=== PATIENT | female | born 1965 | race Caucasian/White ===

== ENCOUNTER 2018-07-20 08:26 | Inpatient (IN) | payer OTHER, MEDICAID, SELFPAY ==
[2018-07-20] VITALS (14 sets, daily range): BP systolic 96–140; BP diastolic 56–77; PULSE 95–118; RESP 12–28; TEMP 36.3–37.4; O2SAT 94–100; BMI 27.5
[2018-07-20] MEDS: BENZTROPINE 2 MG/2 ML AMPUL 1 MG IV ×2 (08:34→08:51)
--- NOTE | 2018-07-20 08:39 | ED.AMS ---
HPI - Altered Mental Status General Chief Complaint: Altered Mental Status Stated Complaint: Behavorial Time Seen by Provider: 07/20/18 08:28 Source: patient Mode of arrival: ambulatory Limitations: no limitations History of Present Illness HPI narrative: 52-year-old female nonsmoker with history of extensive mental health problems on a whole host of medications presents by EMS for evaluation of what appears to be a dystonic reaction, which she has had before. She does apparently take antipsychotics but has not been taking all of her medications as directed. She is awake and alert and attempting to communicate though her current condition makes it difficult. She denies any pain. She has had no trauma. She denies the use of alcohol or street drugs. She lives in a tent at a local long-term camping facility and 1 of her friends found her this way this morning. EMS administered Versed 1.5mg IM and another small 0.5mg IVP. This created little change in appearance. MD complaint: altered mental status and confusion Onset (ago): hour(s) Related Data Home Medications Medication Instructions Recorded Confirmed cyclobenzaprine 10 mg PO BID PRN 07/20/18 07/20/18 duloxetine 120 mg PO DAILY 07/20/18 07/20/18 etodolac 400 mg PO BID PRN 07/20/18 07/20/18 gabapentin 900 mg PO TID 07/20/18 07/20/18 hydroxyzine HCl 50 mg PO QID PRN 07/20/18 07/20/18 lorazepam 1 - 2 mg PO DAILY PRN 07/20/18 07/20/18 pantoprazole 40 mg PO DAILY 07/20/18 07/20/18 quetiapine 100 mg PO QAM 07/20/18 07/20/18 quetiapine 200 mg PO BEDTIME 07/20/18 07/20/18 ranitidine HCl 150 mg PO BID 07/20/18 07/20/18 Allergies Allergy/AdvReac Type Severity Reaction Status Date / Time codeine Allergy Severe THROAT Verified 07/20/18 08:47 CLOSES diphenhydramine Allergy Mild THROAT Verified 07/20/18 08:47 [From BENADRYL] CLOSES/ VISTARIL IS OK. divalproex sodium AdvReac Severe DYSFUNCTIONAL Verified 07/20/18 08:47 WITH ADLS benztropine AdvReac Intermediate MEMORY LOSS Verified 07/20/18 08:47 Review of Systems Review of Systems ROS Unobtainable: Unobtainable due to mental status/LOC Exam Narrative Exam Narrative: GENERAL: 52F in obvious distress, flailing her limbs, able to respond to questions, quite upset, not at neurologic baseline HEAD: Atraumatic. Normocephalic. No temporal or scalp tenderness. EYES: Pupils equal round and reactive. Extraocular motions intact. ENT: Nose without bleeding, purulent drainage or septal hematoma. Throat without erythema NECK: Trachea midline. No JVD or lymphadenopathy. Supple, nontender, no meningeal signs. CARDIOVASCULAR: Regular rate and rhythm without murmurs, gallops, or rubs. RESPIRATORY: Clear to auscultation. Breath sounds equal bilaterally. No wheezes, rales, or rhonchi. GASTROINTESTINAL: Abdomen soft, non-tender, nondistended. No hepato-splenomegaly, or palpable masses. No guarding. EXTREMITIES: No clubbing, cyanosis, or edema. No joint tenderness, effusion, or edema noted. BACK: Nontender without deformity or crepitance. No flank tenderness. NEURO: Alert SKIN: No rash or erythema. Initial Vital Signs Initial Vital Signs: Vital Signs Respiratory Rate 28 H 07/20/18 08:47 Pulse Oximetry 99 07/20/18 08:47 Course Course Narrative: Patient now resting comfortably after above stated Benzos and haldol Orders Ordered: ED Orders 07/20/18 11:02 CT head/brain wo con Stat 07/20/18 11:21 Ictotest Urine Stat Urinalysis and Microscopic Stat Urine Drug Screen, Rapid Stat 07/20/18 16:20 MRSA PCR Stat 07/20/18 16:33 Consult to Clinical Data Programmer Routine 07/20/18 18:23 Consult to Physician Routine Sodium Chloride (Normal Saline 0.9%) 1,000 mls @ 125 mls/hr IV CONT MANUEL Last Admin: 07/20/18 18:57 Dose: 125 mls/hr Lorazepam (Ativan) 1 mg IV Q2HR MANUEL Non-Formulary Medication (Patient's Own Medication) 0 each PO PRN PRN PRN Reason: HOME MEDICATION STORAGE Discontinued Medications Benztropine Mesylate (Cogentin) 1 mg IV NOW ONE Stop: 07/20/18 08:29 Last Admin: 07/20/18 08:34 Dose: 1 mg Benztropine Mesylate (Cogentin) 1 mg IV NOW ONE Stop: 07/20/18 08:48 Last Admin: 07/20/18 08:51 Dose: 1 mg Haloperidol (Haldol) 5 mg IV NOW ONE Stop: 07/20/18 11:28 Last Admin: 07/20/18 11:30 Dose: 5 mg Haloperidol (Haldol) 5 mg IV Q4HR PRN PRN Reason: Agitation Hydroxyzine HCl (Vistaril) 50 mg IM NOW ONE Stop: 07/20/18 18:35 Last Admin: 07/20/18 19:14 Dose: Not Given Sodium Chloride (Normal Saline 0.9%) 1,000 mls @ 1,000 mls/hr IV BOLUS ONE Stop: 07/20/18 09:27 Last Infusion: 07/20/18 09:48 Dose: 0 mls/hr Admin: 07/20/18 08:40 Dose: 1,000 mls/hr Sodium Chloride (Normal Saline 0.9%) 1,000 mls @ 1,000 mls/hr IV BOLUS ONE Stop: 07/20/18 13:50 Last Infusion: 07/20/18 14:20 Dose: 0 mls/hr Admin: 07/20/18 12:57 Dose: 1,000 mls/hr Lorazepam (Ativan) 2 mg IV NOW ONE Stop: 07/20/18 09:07 Last Admin: 07/20/18 09:09 Dose: 2 mg Lorazepam (Ativan) 1 mg IV NOW ONE Stop: 07/20/18 11:09 Last Admin: 07/20/18 11:08 Dose: 1 mg Lorazepam (Ativan) 1 mg IV NOW ONE Stop: 07/20/18 12:52 Last Admin: 07/20/18 12:57 Dose: 1 mg Methylprednisolone (Solu-Medrol 125 Mg Vial) 125 mg IV NOW ONE Stop: 07/20/18 08:50 Last Admin: 07/20/18 08:52 Dose: 125 mg Vital Signs - 8 hr 07/20/18 12:29 07/20/18 13:00 07/20/18 13:27 Temperature 98.1 F Pulse Rate 107 H 107 H 103 H Respiratory Rate 24 12 14 Blood Pressure Blood Pressure [Left Arm] 137/77 117/63 100/66 Pulse Oximetry 95 97 97 07/20/18 13:48 07/20/18 14:08 07/20/18 15:16 Temperature Pulse Rate 103 H 101 H 103 H Respiratory Rate 14 12 16 Blood Pressure Blood Pressure [Left Arm] 98/57 L 103/57 L 120/62 Pulse Oximetry 97 98 100 07/20/18 15:48 07/20/18 16:20 Temperature 98.2 F Pulse Rate 103 H 101 H Respiratory Rate 12 26 H Blood Pressure 112/56 L Blood Pressure [Left Arm] 96/63 Pulse Oximetry 98 94 MDM - Altered Mental Status Lab Data Result diagrams: 07/20/18 08:30 07/20/18 08:30 Lab Results 07/20/18 07/20/18 07/20/18 Range/Units 08:30 08:30 08:30 WBC 13.6 H (4.5-11.0) X10^3/uL RBC 4.50 (4.0-5.2) X10^6/uL Hgb 12.8 (12.0-16.0) g/dL Hct 37.6 (36-46) % MCV 83.6 (80-100) fL MCH 28.3 (26-34) PG MCHC 33.9 (30-36) % RDW 14.1 (11.6-14.8) % Plt Count 398 (150-400) X10^3/uL Neut % (Auto) 77.7 H (50-75) % Lymph % (Auto) 12.4 L (25-40) % [place] % (Auto) 9.0 (3-14) % Eos % (Auto) 0.1 L (2-4) % Baso % (Auto) 0.8 (0-2) % Neut # (Auto) 90089 H (4366-4532) /uL Lymph # (Auto) 1700 (8043-1016) /uL [place] # (Auto) 1200 H (0-900) /uL Eos # (Auto) 0 (0-450) /uL Baso # (Auto) 100 (0-100) /uL Sodium (137-145) mmol/L Potassium (3.4-5.1) mmol/L Chloride (98-107) mmol/L Carbon Dioxide (22-32) mmol/L BUN (7-17) mg/dL Creatinine (0.52-1.04) mg/dL Estimated GFR (>60) mL/min BUN/Creatinine Ratio (6-22) Glucose (70-100) mg/dL Lactate (0.7-2.1) mmol/L Calcium (8.4-10.2) mg/dL Total Bilirubin (0.2-1.3) mg/dL AST (14-36) IU/L ALT (9-52) IU/L Alkaline Phosphatase (38-126) U/L Total Creatine Kinase 605 H (30-135) U/L CK-MB (CK-2) 13.10 H (<2.37) ng/mL CK-MB (CK-2) Rel Index 2.2 (1.5-5.0) % Troponin I < 0.012 (0.01-0.034) ng/mL Total Protein (6.3-8.2) g/dL Albumin (3.5-5.0) g/dL Globulin (1.7-4.1) g/dL Albumin/Globulin Ratio (1.0-2.8) Procalcitonin (<0.5) ng/mL TSH 0.78 (0.47-4.68) uIU/mL Free T4 1.47 (0.78-2.19) ng/dL Urine Color Urine Appearance Urine pH (4.5-8.0) Ur Specific [place] (1.000-1.035) Urine Protein (Negative) Urine Glucose (UA) (Negative) g/dL Urine Ketones (NEGATIVE) Urine Occult Blood (Negative) Urine Nitrate (Negative) Urine Bilirubin (NEGATIVE) Urine Ictotest (Negative) Urine Urobilinogen (0.2) E.U./dL Ur Leukocyte Esterase (NEGATIVE) Urine RBC (0-5/HPF) Urine WBC (0-5/HPF) Ur Squamous Epith Cells (0-5/HPF) Amorphous Sediment Urine Bacteria (None) Hyaline Casts (None) Granular Casts (None) Urine Mucus (Negative) Ur Culture Indicated? Nasal Screen MRSA (PCR) (Negative) Salicylates < 1.0 (<20) mg/dL Urine Opiates Screen (Negative) Ur Oxycodone Screen (Negative) Urine Methadone Screen (Negative) Acetaminophen < 10 L (10-30) ug/mL Ur Barbiturates Screen (Negative) U Tricyclic Antidepress (Negative) Ur Phencyclidine Scrn (Negative) Ur Amphetamines Screen (Negative) U Methamphetamines Scrn (Negative) Ur MDMA Scrn (Ecstasy) (Negative) U Benzodiazepines Scrn (Negative) Urine Cocaine Screen (Negative) U Marijuana (THC) Screen (Negative) 07/20/18 07/20/18 07/20/18 Range/Units 08:30 08:30 09:00 WBC (4.5-11.0) X10^3/uL RBC (4.0-5.2) X10^6/uL Hgb (12.0-16.0) g/dL Hct (36-46) % MCV (80-100) fL MCH (26-34) PG MCHC (30-36) % RDW (11.6-14.8) % Plt Count (150-400) X10^3/uL Neut % (Auto) (50-75) % Lymph % (Auto) (25-40) % [place] % (Auto) (3-14) % Eos % (Auto) (2-4) % Baso % (Auto) (0-2) % Neut # (Auto) (8501-2325) /uL Lymph # (Auto) (8687-6193) /uL [place] # (Auto) (0-900) /uL Eos # (Auto) (0-450) /uL Baso # (Auto) (0-100) /uL Sodium 139 (137-145) mmol/L Potassium 4.1 (3.4-5.1) mmol/L Chloride 103 (98-107) mmol/L Carbon Dioxide 17 L (22-32) mmol/L BUN 24 H (7-17) mg/dL Creatinine 1.00 (0.52-1.04) mg/dL Estimated GFR 57.8 L (>60) mL/min BUN/Creatinine Ratio 24.0 H (6-22) Glucose 104 H (70-100) mg/dL Lactate 1.5 (0.7-2.1) mmol/L Calcium 10.5 H (8.4-10.2) mg/dL Total Bilirubin 1.3 (0.2-1.3) mg/dL AST 59 H (14-36) IU/L ALT 52 (9-52) IU/L Alkaline Phosphatase 130 H (38-126) U/L Total Creatine Kinase (30-135) U/L CK-MB (CK-2) (<2.37) ng/mL CK-MB (CK-2) Rel Index (1.5-5.0) % Troponin I (0.01-0.034) ng/mL Total Protein 7.9 (6.3-8.2) g/dL Albumin 4.6 (3.5-5.0) g/dL Globulin 3.3 (1.7-4.1) g/dL Albumin/Globulin Ratio 1.4 (1.0-2.8) Procalcitonin < 0.05 (<0.5) ng/mL TSH (0.47-4.68) uIU/mL Free T4 (0.78-2.19) ng/dL Urine Color Urine Appearance Urine pH (4.5-8.0) Ur Specific [place] (1.000-1.035) Urine Protein (Negative) Urine Glucose (UA) (Negative) g/dL Urine Ketones (NEGATIVE) Urine Occult Blood (Negative) Urine Nitrate (Negative) Urine Bilirubin (NEGATIVE) Urine Ictotest (Negative) Urine Urobilinogen (0.2) E.U./dL Ur Leukocyte Esterase (NEGATIVE) Urine RBC (0-5/HPF) Urine WBC (0-5/HPF) Ur Squamous Epith Cells (0-5/HPF) Amorphous Sediment Urine Bacteria (None) Hyaline Casts (None) Granular Casts (None) Urine Mucus (Negative) Ur Culture Indicated? Nasal Screen MRSA (PCR) (Negative) Salicylates (<20) mg/dL Urine Opiates Screen (Negative) Ur Oxycodone Screen (Negative) Urine Methadone Screen (Negative) Acetaminophen (10-30) ug/mL Ur Barbiturates Screen (Negative) U Tricyclic Antidepress (Negative) Ur Phencyclidine Scrn (Negative) Ur Amphetamines Screen (Negative) U Methamphetamines Scrn (Negative) Ur MDMA Scrn (Ecstasy) (Negative) U Benzodiazepines Scrn (Negative) Urine Cocaine Screen (Negative) U Marijuana (THC) Screen (Negative) 07/20/18 07/20/18 07/20/18 Range/Units 11:21 11:21 16:20 WBC (4.5-11.0) X10^3/uL RBC (4.0-5.2) X10^6/uL Hgb (12.0-16.0) g/dL Hct (36-46) % MCV (80-100) fL MCH (26-34) PG MCHC (30-36) % RDW (11.6-14.8) % Plt Count (150-400) X10^3/uL Neut % (Auto) (50-75) % Lymph % (Auto) (25-40) % [place] % (Auto) (3-14) % Eos % (Auto) (2-4) % Baso % (Auto) (0-2) % Neut # (Auto) (3752-4243) /uL Lymph # (Auto) (3930-9834) /uL [place] # (Auto) (0-900) /uL Eos # (Auto) (0-450) /uL Baso # (Auto) (0-100) /uL Sodium (137-145) mmol/L Potassium (3.4-5.1) mmol/L Chloride (98-107) mmol/L Carbon Dioxide (22-32) mmol/L BUN (7-17) mg/dL Creatinine (0.52-1.04) mg/dL Estimated GFR (>60) mL/min BUN/Creatinine Ratio (6-22) Glucose (70-100) mg/dL Lactate (0.7-2.1) mmol/L Calcium (8.4-10.2) mg/dL Total Bilirubin (0.2-1.3) mg/dL AST (14-36) IU/L ALT (9-52) IU/L Alkaline Phosphatase (38-126) U/L Total Creatine Kinase (30-135) U/L CK-MB (CK-2) (<2.37) ng/mL CK-MB (CK-2) Rel Index (1.5-5.0) % Troponin I (0.01-0.034) ng/mL Total Protein (6.3-8.2) g/dL Albumin (3.5-5.0) g/dL Globulin (1.7-4.1) g/dL Albumin/Globulin Ratio (1.0-2.8) Procalcitonin (<0.5) ng/mL TSH (0.47-4.68) uIU/mL Free T4 (0.78-2.19) ng/dL Urine Color Yellow Urine Appearance Clear Urine pH 5.0 (4.5-8.0) Ur Specific [place] >=1.030 H (1.000-1.035) Urine Protein Trace H (Negative) Urine Glucose (UA) Negative (Negative) g/dL Urine Ketones 2+ H (NEGATIVE) Urine Occult Blood Trace-lysed (Negative) Urine Nitrate Negative (Negative) Urine Bilirubin 1+ H (NEGATIVE) Urine Ictotest Negative (Negative) Urine Urobilinogen 0.2 (0.2) E.U./dL Ur Leukocyte Esterase Negative (NEGATIVE) Urine RBC 0-1/hpf (0-5/HPF) Urine WBC 0-1/hpf (0-5/HPF) Ur Squamous Epith Cells 1-5 /hpf (0-5/HPF) Amorphous Sediment 1+ Urine Bacteria Few (2-10) H (None) Hyaline Casts 0-1/lpf (None) Granular Casts 0-1/lpf (None) Urine Mucus 1+ H (Negative) Ur Culture Indicated? Cult not indicated Nasal Screen MRSA (PCR) Negative for mrsa (Negative) Salicylates (<20) mg/dL Urine Opiates Screen Negative (Negative) Ur Oxycodone Screen Negative (Negative) Urine Methadone Screen Negative (Negative) Acetaminophen (10-30) ug/mL Ur Barbiturates Screen Negative (Negative) U Tricyclic Antidepress Positive H (Negative) Ur Phencyclidine Scrn Negative (Negative) Ur Amphetamines Screen Positive H (Negative) U Methamphetamines Scrn Negative (Negative) Ur MDMA Scrn (Ecstasy) Negative (Negative) U Benzodiazepines Scrn Negative (Negative) Urine Cocaine Screen Negative (Negative) U Marijuana (THC) Screen Positive H (Negative) Imaging Data CT scan - head: Radiologist's impression: 47 Juan Robles, DO Find Patient Imaging Anyi Deleon 52 F 1965 ACTIVITY DATE EXAM STATUS AUTHOR 07/20/18 11:[address] [id number] [address] Scan Report Signed Patient: Anyi Deleon MMR#: [id number] : 1965Acct:[id number] Age/Sex: 52 / FDate of Service: 07/20/18 Loc: ED Accession Number: [id number] Procedure: CT head/brain wo con Ordering Provider: Juan Robles D.O. PROCEDURE: CT HEAD/BRAIN WO CON INDICATIONS: mental status change TECHNIQUE: Noncontrast 4.5 mm thick angled axial sections acquired from the foramen magnum to the vertex, with coronal and sagittal reformats. For radiation dose reduction, the following was used: automated exposure control, adjustment of mA and/or kV according to patient size. COMPARISON: [facility], CT, HEAD WITHOUT CONTRAST, 01/10/2015, 18:09. FINDINGS: Image quality: Diagnostic. CSF spaces: Basal cisterns are patent. No extra-axial fluid collections. Ventricles are normal in size and shape. Brain: No midline shift. No intracranial masses or hemorrhage. Gil-white matter interface is normal. Skull and face: Calvarium and visualized facial bones are intact, without suspicious lesions. Sinuses: Visualized sinuses and mastoids are clear. IMPRESSION: Unremarkable head CT. No acute intracranial hemorrhage. Dictated by: Vinnie Larry M.D. on 07/20/2018 at 12:35 Approved by: Vinnie Larry M.D. on 07/20/2018 at 12:36 MDM Narrative Medical decision making narrative: 52-year-old female presents in what appears to be excited delirium. She has extensive psychiatric history and is unable to participate in review of systems during her visit. She had attempts made to reverse a possible dystonic reaction which were unsuccessful and thorough evaluation for other possible etiologies. Poly substance or street drugs are considered highly likely. Trauma considered but thought less likely given exam. Serotonin syndrome and NMS are considered but thought less likely given history and physical. Patient will require hospitalization for ongoing observation and stabilization of her condition. Discharge Plan Departure Patient Disposition: Admitted as Observation Clinical Impression: Altered mental status, unspecified Discharge Date/Time: 07/20/18 16:17 Interventions: ED Discharge Assessment Last Done: 07/20/18 16:17 Admit Date/Time: 07/20/18 14:50 Admit Provider: Emelyn Arellano
[2018-07-20] MEDS: SODIUM CHLORIDE 0.9% 1,000 ML 1000 ML IV ×2 (08:40→12:57)
[2018-07-20 08:48] LABS: Add Manual Diff / Slide Review NO; Basophils Absolute Auto 100 /uL (0-100); Basophils Percent Auto 0.8 % (0-2); Eosinophils Absolute Auto 0 /uL (0-450); Eosinophils Percent Auto 0.1 % (2-4); Hematocrit 37.6 % (36-46); Hemoglobin 12.8 g/dL (12.0-16.0); Lymphocytes Absolute Auto 1700 /uL (1100-4500); Lymphocytes Percent Auto 12.4 % (25-40); Mean Corpuscular HGB Conc 33.9 % (30-36); Mean Corpuscular Hemoglobin 28.3 PG (26-34); Mean Corpuscular Volume 83.6 fL (80-100); Monocytes Absolute Auto 1200 /uL (0-900); Neutrophils Absolute Auto 10600 /uL (1500-7000); Neutrophils Percent Auto 77.7 % (50-75); Platelet Count 398 X10^3/uL (150-400); Red Cell Distribution Width 14.1 % (11.6-14.8); White Blood Cell Count 13.6 X10^3/uL (4.5-11.0)
[2018-07-20] MEDS: methylPREDNISolone 125 MG/2 ML VIAL IV (08:52)
--- NOTE | 2018-07-20 08:53 | PC.NURSE ---
pt continues to be unable to sit still on bed. pt's leg and arms moving about uncontrollably. pt moaning and calling out please please pt able to answer questions with one word answers. pt c/o iv hurting. pt yelling out.
--- NOTE | 2018-07-20 09:00 | ED_ITS ---
HPI - Altered Mental Status General Chief Complaint: Altered Mental Status Stated Complaint: Behavorial Time Seen by Provider: 07/20/18 08:28 Source: patient Mode of arrival: ambulatory Limitations: no limitations History of Present Illness HPI narrative: 52-year-old female nonsmoker with history of extensive mental health problems on a whole host of medications presents by EMS for evaluation of what appears to be a dystonic reaction, which she has had before. She does apparently take antipsychotics but has not been taking all of her medications as directed. She is awake and alert and attempting to communicate though her current condition makes it difficult. She denies any pain. She has had no trauma. She denies the use of alcohol or street drugs. She lives in a tent at a local long-term camping facility and 1 of her friends found her this way this morning. EMS administered Versed 1.5mg IM and another small 0.5mg IVP. This created little change in appearance. MD complaint: altered mental status and confusion Onset (ago): hour(s) Related Data Home Medications Medication Instructions Recorded Confirmed cyclobenzaprine 10 mg PO BID PRN 07/20/18 07/20/18 duloxetine 120 mg PO DAILY 07/20/18 07/20/18 etodolac 400 mg PO BID PRN 07/20/18 07/20/18 gabapentin 900 mg PO TID 07/20/18 07/20/18 hydroxyzine HCl 50 mg PO QID PRN 07/20/18 07/20/18 lorazepam 1 - 2 mg PO DAILY PRN 07/20/18 07/20/18 pantoprazole 40 mg PO DAILY 07/20/18 07/20/18 quetiapine 100 mg PO QAM 07/20/18 07/20/18 quetiapine 200 mg PO BEDTIME 07/20/18 07/20/18 ranitidine HCl 150 mg PO BID 07/20/18 07/20/18 Allergies Allergy/AdvReac Type Severity Reaction Status Date / Time codeine Allergy Severe THROAT Verified 07/20/18 08:47 CLOSES diphenhydramine Allergy Mild THROAT Verified 07/20/18 08:47 [From BENADRYL] CLOSES/ VISTARIL IS OK. divalproex sodium AdvReac Severe DYSFUNCTIONAL Verified 07/20/18 08:47 WITH ADLS benztropine AdvReac Intermediate MEMORY LOSS Verified 07/20/18 08:47 Review of Systems Review of Systems ROS Unobtainable: Unobtainable due to mental status/LOC Exam Narrative Exam Narrative: GENERAL: 52F in obvious distress, flailing her limbs, able to respond to questions, quite upset, not at neurologic baseline HEAD: Atraumatic. Normocephalic. No temporal or scalp tenderness. EYES: Pupils equal round and reactive. Extraocular motions intact. ENT: Nose without bleeding, purulent drainage or septal hematoma. Throat without erythema NECK: Trachea midline. No JVD or lymphadenopathy. Supple, nontender, no meningeal signs. CARDIOVASCULAR: Regular rate and rhythm without murmurs, gallops, or rubs. RESPIRATORY: Clear to auscultation. Breath sounds equal bilaterally. No wheezes, rales, or rhonchi. GASTROINTESTINAL: Abdomen soft, non-tender, nondistended. No hepato- splenomegaly, or palpable masses. No guarding. EXTREMITIES: No clubbing, cyanosis, or edema. No joint tenderness, effusion, or edema noted. BACK: Nontender without deformity or crepitance. No flank tenderness. NEURO: Alert SKIN: No rash or erythema. Initial Vital Signs Initial Vital Signs: Vital Signs Respiratory Rate 28 H 07/20/18 08:47 Pulse Oximetry 99 07/20/18 08:47 Course Course Narrative: Patient now resting comfortably after above stated Benzos and haldol Orders Ordered: ED Orders 07/20/18 11:02 CT head/brain wo con Stat 07/20/18 11:21 Ictotest Urine Stat Urinalysis and Microscopic Stat Urine Drug Screen, Rapid Stat 07/20/18 16:20 MRSA PCR Stat 07/20/18 16:33 Consult to [employer] Routine 07/20/18 18:23 Consult to Physician Routine Sodium Chloride (Normal Saline 0.9%) 1,000 mls @ 125 mls/hr IV CONT MANUEL Last Admin: 07/20/18 18:57 Dose: 125 mls/hr Lorazepam (Ativan) 1 mg IV Q2HR MANUEL Non-Formulary Medication (Patient's Own Medication) 0 each PO PRN PRN PRN Reason: HOME MEDICATION STORAGE Discontinued Medications Benztropine Mesylate (Cogentin) 1 mg IV NOW ONE Stop: 07/20/18 08:29 Last Admin: 07/20/18 08:34 Dose: 1 mg Benztropine Mesylate (Cogentin) 1 mg IV NOW ONE Stop: 07/20/18 08:48 Last Admin: 07/20/18 08:51 Dose: 1 mg Haloperidol (Haldol) 5 mg IV NOW ONE Stop: 07/20/18 11:28 Last Admin: 07/20/18 11:30 Dose: 5 mg Haloperidol (Haldol) 5 mg IV Q4HR PRN PRN Reason: Agitation Hydroxyzine HCl (Vistaril) 50 mg IM NOW ONE Stop: 07/20/18 18:35 Last Admin: 07/20/18 19:14 Dose: Not Given Sodium Chloride (Normal Saline 0.9%) 1,000 mls @ 1,000 mls/hr IV BOLUS ONE Stop: 07/20/18 09:27 Last Infusion: 07/20/18 09:48 Dose: 0 mls/hr Admin: 07/20/18 08:40 Dose: 1,000 mls/hr Sodium Chloride (Normal Saline 0.9%) 1,000 mls @ 1,000 mls/hr IV BOLUS ONE Stop: 07/20/18 13:50 Last Infusion: 07/20/18 14:20 Dose: 0 mls/hr Admin: 07/20/18 12:57 Dose: 1,000 mls/hr Lorazepam (Ativan) 2 mg IV NOW ONE Stop: 07/20/18 09:07 Last Admin: 07/20/18 09:09 Dose: 2 mg Lorazepam (Ativan) 1 mg IV NOW ONE Stop: 07/20/18 11:09 Last Admin: 07/20/18 11:08 Dose: 1 mg Lorazepam (Ativan) 1 mg IV NOW ONE Stop: 07/20/18 12:52 Last Admin: 07/20/18 12:57 Dose: 1 mg Methylprednisolone (Solu-Medrol 125 Mg Vial) 125 mg IV NOW ONE Stop: 07/20/18 08:50 Last Admin: 07/20/18 08:52 Dose: 125 mg Vital Signs - 8 hr 07/20/18 12:29 07/20/18 13:00 07/20/18 13:27 Temperature 98.1 F Pulse Rate 107 H 107 H 103 H Respiratory Rate 24 12 14 Blood Pressure Blood Pressure [Left Arm] 137/77 117/63 100/66 Pulse Oximetry 95 97 97 07/20/18 13:48 07/20/18 14:08 07/20/18 15:16 Temperature Pulse Rate 103 H 101 H 103 H Respiratory Rate 14 12 16 Blood Pressure Blood Pressure [Left Arm] 98/57 L 103/57 L 120/62 Pulse Oximetry 97 98 100 07/20/18 15:48 07/20/18 16:20 Temperature 98.2 F Pulse Rate 103 H 101 H Respiratory Rate 12 26 H Blood Pressure 112/56 L Blood Pressure [Left Arm] 96/63 Pulse Oximetry 98 94 MDM - Altered Mental Status Lab Data Result diagrams: 07/20/18 08:30 07/20/18 08:30 Lab Results 07/20/18 07/20/18 07/20/18 Range/Units 08:30 08:30 08:30 WBC 13.6 H (4.5-11.0) X10^3/uL RBC 4.50 (4.0-5.2) X10^6/uL Hgb 12.8 (12.0-16.0) g/dL Hct 37.6 (36-46) % MCV 83.6 (80-100) fL MCH 28.3 (26-34) PG MCHC 33.9 (30-36) % RDW 14.1 (11.6-14.8) % Plt Count 398 (150-400) X10^3/uL Neut % (Auto) 77.7 H (50-75) % Lymph % (Auto) 12.4 L (25-40) % Lamar % (Auto) 9.0 (3-14) % Eos % (Auto) 0.1 L (2-4) % Baso % (Auto) 0.8 (0-2) % Neut # (Auto) 44806 H (0871-7171) /uL Lymph # (Auto) 1700 (4244-3171) /uL Lamar # (Auto) 1200 H (0-900) /uL Eos # (Auto) 0 (0-450) /uL Baso # (Auto) 100 (0-100) /uL Sodium (137-145) mmol/L Potassium (3.4-5.1) mmol/L Chloride (98-107) mmol/L Carbon Dioxide (22-32) mmol/L BUN (7-17) mg/dL Creatinine (0.52-1.04) mg/dL Estimated GFR (>60) mL/min BUN/Creatinine Ratio (6-22) Glucose (70-100) mg/dL Lactate (0.7-2.1) mmol/L Calcium (8.4-10.2) mg/dL Total Bilirubin (0.2-1.3) mg/dL AST (14-36) IU/L ALT (9-52) IU/L Alkaline Phosphatase (38-126) U/L Total Creatine Kinase 605 H (30-135) U/L CK-MB (CK-2) 13.10 H (<2.37) ng/mL CK-MB (CK-2) Rel Index 2.2 (1.5-5.0) % Troponin I < 0.012 (0.01-0.034) ng/mL Total Protein (6.3-8.2) g/dL Albumin (3.5-5.0) g/dL Globulin (1.7-4.1) g/dL Albumin/Globulin Ratio (1.0-2.8) Procalcitonin (<0.5) ng/mL TSH 0.78 (0.47-4.68) uIU/mL Free T4 1.47 (0.78-2.19) ng/dL Urine Color Urine Appearance Urine pH (4.5-8.0) Ur Specific Wilton (1.000-1.035) Urine Protein (Negative) Urine Glucose (UA) (Negative) g/dL Urine Ketones (NEGATIVE) Urine Occult Blood (Negative) Urine Nitrate (Negative) Urine Bilirubin (NEGATIVE) Urine Ictotest (Negative) Urine Urobilinogen (0.2) E.U./dL Ur Leukocyte Esterase (NEGATIVE) Urine RBC (0-5/HPF) Urine WBC (0-5/HPF) Ur Squamous Epith Cells (0-5/HPF) Amorphous Sediment Urine Bacteria (None) Hyaline Casts (None) Granular Casts (None) Urine Mucus (Negative) Ur Culture Indicated? Nasal Screen MRSA (PCR) (Negative) Salicylates < 1.0 (<20) mg/dL Urine Opiates Screen (Negative) Ur Oxycodone Screen (Negative) Urine Methadone Screen (Negative) Acetaminophen < 10 L (10-30) ug/mL Ur Barbiturates Screen (Negative) U Tricyclic Antidepress (Negative) Ur Phencyclidine Scrn (Negative) Ur Amphetamines Screen (Negative) U Methamphetamines Scrn (Negative) Ur MDMA Scrn (Ecstasy) (Negative) U Benzodiazepines Scrn (Negative) Urine Cocaine Screen (Negative) U Marijuana (THC) Screen (Negative) 07/20/18 07/20/18 07/20/18 Range/Units 08:30 08:30 09:00 WBC (4.5-11.0) X10^3/uL RBC (4.0-5.2) X10^6/uL Hgb (12.0-16.0) g/dL Hct (36-46) % MCV (80-100) fL MCH (26-34) PG MCHC (30-36) % RDW (11.6-14.8) % Plt Count (150-400) X10^3/uL Neut % (Auto) (50-75) % Lymph % (Auto) (25-40) % Lamar % (Auto) (3-14) % Eos % (Auto) (2-4) % Baso % (Auto) (0-2) % Neut # (Auto) (3031-3603) /uL Lymph # (Auto) (5349-6420) /uL Lamar # (Auto) (0-900) /uL Eos # (Auto) (0-450) /uL Baso # (Auto) (0-100) /uL Sodium 139 (137-145) mmol/L Potassium 4.1 (3.4-5.1) mmol/L Chloride 103 (98-107) mmol/L Carbon Dioxide 17 L (22-32) mmol/L BUN 24 H (7-17) mg/dL Creatinine 1.00 (0.52-1.04) mg/dL Estimated GFR 57.8 L (>60) mL/min BUN/Creatinine Ratio 24.0 H (6-22) Glucose 104 H (70-100) mg/dL Lactate 1.5 (0.7-2.1) mmol/L Calcium 10.5 H (8.4-10.2) mg/dL Total Bilirubin 1.3 (0.2-1.3) mg/dL AST 59 H (14-36) IU/L ALT 52 (9-52) IU/L Alkaline Phosphatase 130 H (38-126) U/L Total Creatine Kinase (30-135) U/L CK-MB (CK-2) (<2.37) ng/mL CK-MB (CK-2) Rel Index (1.5-5.0) % Troponin I (0.01-0.034) ng/mL Total Protein 7.9 (6.3-8.2) g/dL Albumin 4.6 (3.5-5.0) g/dL Globulin 3.3 (1.7-4.1) g/dL Albumin/Globulin Ratio 1.4 (1.0-2.8) Procalcitonin < 0.05 (<0.5) ng/mL TSH (0.47-4.68) uIU/mL Free T4 (0.78-2.19) ng/dL Urine Color Urine Appearance Urine pH (4.5-8.0) Ur Specific Wilton (1.000-1.035) Urine Protein (Negative) Urine Glucose (UA) (Negative) g/dL Urine Ketones (NEGATIVE) Urine Occult Blood (Negative) Urine Nitrate (Negative) Urine Bilirubin (NEGATIVE) Urine Ictotest (Negative) Urine Urobilinogen (0.2) E.U./dL Ur Leukocyte Esterase (NEGATIVE) Urine RBC (0-5/HPF) Urine WBC (0-5/HPF) Ur Squamous Epith Cells (0-5/HPF) Amorphous Sediment Urine Bacteria (None) Hyaline Casts (None) Granular Casts (None) Urine Mucus (Negative) Ur Culture Indicated? Nasal Screen MRSA (PCR) (Negative) Salicylates (<20) mg/dL Urine Opiates Screen (Negative) Ur Oxycodone Screen (Negative) Urine Methadone Screen (Negative) Acetaminophen (10-30) ug/mL Ur Barbiturates Screen (Negative) U Tricyclic Antidepress (Negative) Ur Phencyclidine Scrn (Negative) Ur Amphetamines Screen (Negative) U Methamphetamines Scrn (Negative) Ur MDMA Scrn (Ecstasy) (Negative) U Benzodiazepines Scrn (Negative) Urine Cocaine Screen (Negative) U Marijuana (THC) Screen (Negative) 07/20/18 07/20/18 07/20/18 Range/Units 11:21 11:21 16:20 WBC (4.5-11.0) X10^3/uL RBC (4.0-5.2) X10^6/uL Hgb (12.0-16.0) g/dL Hct (36-46) % MCV (80-100) fL MCH (26-34) PG MCHC (30-36) % RDW (11.6-14.8) % Plt Count (150-400) X10^3/uL Neut % (Auto) (50-75) % Lymph % (Auto) (25-40) % Lamar % (Auto) (3-14) % Eos % (Auto) (2-4) % Baso % (Auto) (0-2) % Neut # (Auto) (2994-9769) /uL Lymph # (Auto) (7897-5474) /uL Lamar # (Auto) (0-900) /uL Eos # (Auto) (0-450) /uL Baso # (Auto) (0-100) /uL Sodium (137-145) mmol/L Potassium (3.4-5.1) mmol/L Chloride (98-107) mmol/L Carbon Dioxide (22-32) mmol/L BUN (7-17) mg/dL Creatinine (0.52-1.04) mg/dL Estimated GFR (>60) mL/min BUN/Creatinine Ratio (6-22) Glucose (70-100) mg/dL Lactate (0.7-2.1) mmol/L Calcium (8.4-10.2) mg/dL Total Bilirubin (0.2-1.3) mg/dL AST (14-36) IU/L ALT (9-52) IU/L Alkaline Phosphatase (38-126) U/L Total Creatine Kinase (30-135) U/L CK-MB (CK-2) (<2.37) ng/mL CK-MB (CK-2) Rel Index (1.5-5.0) % Troponin I (0.01-0.034) ng/mL Total Protein (6.3-8.2) g/dL Albumin (3.5-5.0) g/dL Globulin (1.7-4.1) g/dL Albumin/Globulin Ratio (1.0-2.8) Procalcitonin (<0.5) ng/mL TSH (0.47-4.68) uIU/mL Free T4 (0.78-2.19) ng/dL Urine Color Yellow Urine Appearance Clear Urine pH 5.0 (4.5-8.0) Ur Specific Wilton >=1.030 H (1.000-1.035) Urine Protein Trace H (Negative) Urine Glucose (UA) Negative (Negative) g/dL Urine Ketones 2+ H (NEGATIVE) Urine Occult Blood Trace-lysed (Negative) Urine Nitrate Negative (Negative) Urine Bilirubin 1+ H (NEGATIVE) Urine Ictotest Negative (Negative) Urine Urobilinogen 0.2 (0.2) E.U./dL Ur Leukocyte Esterase Negative (NEGATIVE) Urine RBC 0-1/hpf (0-5/HPF) Urine WBC 0-1/hpf (0-5/HPF) Ur Squamous Epith Cells 1-5 /hpf (0-5/HPF) Amorphous Sediment 1+ Urine Bacteria Few (2-10) H (None) Hyaline Casts 0-1/lpf (None) Granular Casts 0-1/lpf (None) Urine Mucus 1+ H (Negative) Ur Culture Indicated? Cult not indicated Nasal Screen MRSA (PCR) Negative for mrsa (Negative) Salicylates (<20) mg/dL Urine Opiates Screen Negative (Negative) Ur Oxycodone Screen Negative (Negative) Urine Methadone Screen Negative (Negative) Acetaminophen (10-30) ug/mL Ur Barbiturates Screen Negative (Negative) U Tricyclic Antidepress Positive H (Negative) Ur Phencyclidine Scrn Negative (Negative) Ur Amphetamines Screen Positive H (Negative) U Methamphetamines Scrn Negative (Negative) Ur MDMA Scrn (Ecstasy) Negative (Negative) U Benzodiazepines Scrn Negative (Negative) Urine Cocaine Screen Negative (Negative) U Marijuana (THC) Screen Positive H (Negative) Imaging Data CT scan - head: Radiologist's impression: 47 Juan Robles, DO Find Patient Imaging Anyi Deleon 52 F 1965 ACTIVITY DATE EXAM STATUS AUTHOR 07/20/18 11:[address] [address] [address] Scan Report Signed Patient: Anyi Deleon MMR#: [id number] : 1965Acct:[id number] Age/Sex: 52 / FDate of Service: 07/20/18 Loc: ED Accession Number: [id number] Procedure: CT head/brain wo con Ordering Provider: Juan Robles D.O. PROCEDURE: CT HEAD/BRAIN WO CON INDICATIONS: mental status change TECHNIQUE: Noncontrast 4.5 mm thick angled axial sections acquired from the foramen magnum to the vertex, with coronal and sagittal reformats. For radiation dose reduction, the following was used: automated exposure control, adjustment of mA and/or kV according to patient size. COMPARISON: [facility], CT, HEAD WITHOUT CONTRAST, 01/10/2015, 18:09. FINDINGS: Image quality: Diagnostic. CSF spaces: Basal cisterns are patent. No extra-axial fluid collections. Ventricles are normal in size and shape. Brain: No midline shift. No intracranial masses or hemorrhage. Gil-white matter interface is normal. Skull and face: Calvarium and visualized facial bones are intact, without suspicious lesions. Sinuses: Visualized sinuses and mastoids are clear. IMPRESSION: Unremarkable head CT. No acute intracranial hemorrhage. Dictated by: Vinnie Larry M.D. on 07/20/2018 at 12:35 Approved by: Vinnie Larry M.D. on 07/20/2018 at 12:36 MDM Narrative Medical decision making narrative: 52-year-old female presents in what appears to be excited delirium. She has extensive psychiatric history and is unable to participate in review of systems during her visit. She had attempts made to re verse a possible dystonic reaction which were unsuccessful and thorough evaluation for other possible etiologies. Poly substance or street drugs are considered highly likely. Trauma considered but thought less likely given exam. Serotonin syndrome and NMS are considered but thought less likely given history and physical. Patient will require hospitalization for ongoing observation and stabilization of her condition. Discharge Plan Departure Patient Disposition: Admitted as Observation Clinical Impression: Altered mental status, unspecified Discharge Date/Time: 07/20/18 16:17 Interventions: ED Discharge Assessment Last Done: 07/20/18 16:17 Admit Date/Time: 07/20/18 14:50 Admit Provider: Emelyn Arellano
[2018-07-20 09:04] LABS: Alanine Aminotransferase 52 IU/L (9-52); Albumin 4.6 g/dL (3.5-5.0); Albumin Globulin Ratio 1.4 (1.0-2.8); Alkaline Phosphatase 130 U/L (38-126); Aspartate Aminotransferase 59 IU/L (14-36); Bilirubin Total 1.3 mg/dL (0.2-1.3); Blood Urea Nitrogen 24 mg/dL (7-17); Calcium 10.5 mg/dL (8.4-10.2); Carbon Dioxide 17 mmol/L (22-32); Chloride 103 mmol/L (98-107); Estimated Glomerular Filt Rate 57.8 mL/min (>60); Globulin 3.3 g/dL (1.7-4.1); Glucose 104 mg/dL (70-100); HEMOLYSIS < 15 (0-50); Potassium 4.1 mmol/L (3.4-5.1); Sodium 139 mmol/L (137-145); Total Protein 7.9 g/dL (6.3-8.2)
[2018-07-20 09:05] LABS: Acetaminophen < 10 ug/mL (10-30); Creatine Kinase 605 U/L (30-135); Salicylate < 1.0 mg/dL (<20)
[2018-07-20] MEDS: LORazepam 2 MG/ML INJ IV (09:09)
[2018-07-20 09:16] LABS: Troponin I < 0.012 ng/mL (0.01-0.034)
[2018-07-20 09:21] LABS: Free T4, Direct Thyroxine 1.47 ng/dL (0.78-2.19)
--- NOTE | 2018-07-20 09:24 | PC.NURSE ---
pt continues to have full body uncontrollable movements. pt legs are bent and pt continually bouncing them back and forth. pt has had 3 breif moments of relaxation of legs, as soon as they begin to straighten
--- NOTE | 2018-07-20 09:26 | PC.NURSE ---
pt has approx 45seconds of no movment appears to be sleeping, then begins moaning, calling out momma and shaking legs again.
[2018-07-20 09:28] LABS: CKMB % Relative Index 2.2 % (1.5-5.0)
[2018-07-20 09:35] LABS: Thyroid Stimulating Hormone 0.78 uIU/mL (0.47-4.68)
[2018-07-20 09:36] LABS: Procalcitonin < 0.05 ng/mL (<0.5)
[2018-07-20 09:37] LABS: Lactate (Lactic Acid) 1.5 mmol/L (0.7-2.1)
--- NOTE | 2018-07-20 10:31 | PC.NURSE ---
pt appears to be calming. pt having intermittent episodes of sleeping. pt arousable to voice. pt continues to have episodes of moaning, kicking legs and arms, inability to sit still.
--- NOTE | 2018-07-20 11:02 | DI.CT.S_ITS ---
PROCEDURE: CT HEAD/BRAIN WO CON INDICATIONS: mental status change TECHNIQUE: Noncontrast 4.5 mm thick angled axial sections acquired from the foramen magnum to the vertex, with coronal and sagittal reformats. For radiation dose reduction, the following was used: automated exposure control, adjustment of mA and/or kV according to patient size. COMPARISON: [facility], CT, HEAD WITHOUT CONTRAST, 01/10/2015, 18:09. FINDINGS: Image quality: Diagnostic. CSF spaces: Basal cisterns are patent. No extra-axial fluid collections. Ventricles are normal in size and shape. Brain: No midline shift. No intracranial masses or hemorrhage. Gil-white matter interface is normal. Skull and face: Calvarium and visualized facial bones are intact, without suspicious lesions. Sinuses: Visualized sinuses and mastoids are clear. IMPRESSION: Unremarkable head CT. No acute intracranial hemorrhage. Dictated by: Vinnie Larry M.D. on 07/20/2018 at 12:35 Approved by: Vinnie Larry M.D. on 07/20/2018 at 12:36
[2018-07-20] MEDS: LORazepam 2 MG/ML INJ 1 MG IV ×3 (11:08→23:52)
--- NOTE | 2018-07-20 11:23 | PC.NURSE ---
Pt moving in rythmic motion in bed but able to meet eyes when called. Unable to follow commands. Moving in large motions, not hitting side rails, calling out, unintelligible. noted dry blood around moth. No active bleeding. Cohn placed w/ 2 person assist.
[2018-07-20] MEDS: HALOPERIDOL 5 MG/ML VIAL IV (11:30)
[2018-07-20 11:33] LABS: Urine Amphetamines Positive (Negative); Urine Barbiturates Negative (Negative); Urine Benzodiazepines Negative (Negative); Urine Cocaine Negative (Negative); Urine MDMA Negative (Negative); Urine Methadone Negative (Negative); Urine Methamphetamines Negative (Negative); Urine Morphine/Opi cutoff 2000 Negative (Negative); Urine Oxycodone Negative (Negative); Urine Phencyclidine Negative (Negative); Urine Tetrahydrocannabinol Positive (Negative); Urine Tricyclic Antidepressant Positive (Negative)
--- NOTE | 2018-07-20 11:33 | PC.NURSE ---
Pt medicated w/ Haldol 5 mg IV for thrashing, rapid movements. Unable to verbally redirect.
[2018-07-20 11:35] LABS: Appearance Urine UA CLEAR; Bilirubin Urine UA 1+ (NEGATIVE); Color Urine UA YELLOW; Glucose Urine UA NEGATIVE (Negative); Ketones Urine UA 2+ (NEGATIVE); Leukocyte Esterase Urine UA NEGATIVE (NEGATIVE); Nitrite Urine UA NEGATIVE (Negative); Occult Blood Urine UA TRACE-LYSED (Negative); Protein Urine UA TRACE (Negative); Specific Gravity Urine UA >=1.030 (1.000-1.035); Urobilinogen Urine UA 0.2 E.U./dL (0.2)
[2018-07-20 11:57] LABS: Ictotest Urine Negative (Negative); RBC Urine 0-1/HPF (0-5/HPF); WBC Urine 0-1/HPF (0-5/HPF)
[2018-07-20 11:58] LABS: Amorphous Sediment Urine 1+; Bacteria Urine Few (2-10); Culture Indicated Urine Cult Not Indicated; Granular Casts Urine 0-1/LPF; Hyaline Casts Urine 0-1/LPF; Mucus Urine 1+ (Negative); Squamous Epithelial Cell Urine 1-5 /HPF (0-5/HPF)
--- NOTE | 2018-07-20 16:30 | PC.NURSE ---
Addendum entered by Margaret Gomez R.N. 07/20/18 21:14: intermittently thrashing in bed for 1-2 minutes then back asleep. When awake, will open eyes and squeeze hands on command. shakes head yes and no to questions. No longer tachycardic, HR now 80s-90s. Afebrile. BP 132/65. Decreasing stimulation and allowing to sleep. No PRN administration thus far. Original Note: 1614: Pt arrived to ICU #106 under obs status. Opens eyes to voice, cannot track or follow commands. Rhythmic, whole body movements with nursing care and transfer to ICU bed. Asleep and calm when allowed to rest. BP 112/56, HR 103-ST on tele, 95% Spo2 on RA. Unable to give admission hx. Home medications sent to pharmacy. Cohn in place draining clear yellow urine. Seizure pads in place.
[2018-07-20] MEDS: SODIUM CHLORIDE 0.9% 1,000 ML 125 ML IV (18:57)
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
[2018-07-21] VITALS (10 sets, daily range): BP systolic 112–183; BP diastolic 56–86; PULSE 84–118; RESP 18–32; TEMP 36.3–37.1; O2SAT 96–97
[2018-07-21] MEDS: SODIUM CHLORIDE 0.9% 1,000 ML 125 ML IV ×3 (02:09→17:08)
[2018-07-21] MEDS: LORazepam 2 MG/ML INJ 1 MG IV ×2 (02:40→05:15)
[2018-07-21] MEDS: SODIUM CHLORIDE 0.9% FLUSH 10 ML IV (02:40)
[2018-07-21 05:18] LABS: Add Manual Diff / Slide Review NO; Basophils Absolute Auto 0 /uL (0-100); Basophils Percent Auto 0.3 % (0-2); Eosinophils Absolute Auto 0 /uL (0-450); Hemoglobin 10.6 g/dL (12.0-16.0); Lymphocytes Absolute Auto 1700 /uL (1100-4500); Lymphocytes Percent Auto 18.7 % (25-40); Mean Corpuscular Hemoglobin 28.5 PG (26-34); Mean Corpuscular Volume 83.8 fL (80-100); Monocytes Absolute Auto 1000 /uL (0-900); Monocytes Percent Auto 10.9 % (3-14); Neutrophils Absolute Auto 6400 /uL (1500-7000); Neutrophils Percent Auto 70.1 % (50-75); Platelet Count 314 X10^3/uL (150-400); Red Cell Distribution Width 14.3 % (11.6-14.8); White Blood Cell Count 9.1 X10^3/uL (4.5-11.0)
[2018-07-21 05:25] LABS: Alanine Aminotransferase 43 IU/L (9-52); Albumin 3.4 g/dL (3.5-5.0); Albumin Globulin Ratio 1.2 (1.0-2.8); Alkaline Phosphatase 85 U/L (38-126); Aspartate Aminotransferase 32 IU/L (14-36); BUN Creatinine Ratio 28.8 (6-22); Bilirubin Total 0.7 mg/dL (0.2-1.3); Blood Urea Nitrogen 23 mg/dL (7-17); Calcium 8.9 mg/dL (8.4-10.2); Carbon Dioxide 17 mmol/L (22-32); Chloride 115 mmol/L (98-107); Estimated Glomerular Filt Rate > 60.0 mL/min (>60); Globulin 2.9 g/dL (1.7-4.1); Glucose 97 mg/dL (70-100); HEMOLYSIS < 15 (0-50); Sodium 142 mmol/L (137-145); Total Protein 6.3 g/dL (6.3-8.2)
--- NOTE | 2018-07-21 06:38 | PC.NURSE ---
Addendum entered by Kiarra Benitez R.N. 07/21/18 06:40: 0645 Pt awake, yelling sitting up in bed will not follow direction. Crying she needs to go to the bathroom, however has a catheter. Catheter patent, pt doesn't understand. Not consolable. Bed alarm on for safety, close OBS. VSS. Original Note: NOC Shift: Pt non verbal, opens eyes to name, nods yes, no at times appropriately to questions. Other times has periods of thrashing around w/all extremities, moaning. Episodes last 10 to 30 minutes. Intermittent Ativan given for agitation. VSS, SR/ST on tele. IVF's, campbell. NPO. F/C OBS.
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
[2018-07-21] MEDS: LABETALOL 20 MG/4 ML SYRINGE 10 MG IV (07:56)
[2018-07-21] MEDS: diazePAM 2 MG TABLET PO (09:19)
--- NOTE | 2018-07-21 13:25 | PC.NURSE ---
Day Shift Note Pt initially calm on AM assessment, with command following. Dr. Basurto and Dr. Arellano at bedside and pt able to answer some simple questions such as her name. At 0900 pt began yelling out and moaning while thrashing in bed, spastic-type movements to all extremities. Sitting up and calling out please please, help me and I need to pee as well as inarticulate words/cries. Attempts to assist, reorient to catheter, and calm patient largely unsuccessful. Thrashing and spastic movements noted to cease when patient drinking water or when sleeping or when patient is left alone. The above discussed with Dr. Arellano and order obtained for PO diazepam which pt took with instruction - no changes in behavior after administration. [place]-area around catheter very sensitive per pt with pt crying and yelling out with attempts to re-secure or re-position. Catheter noted to be patent and draining aye urine. Cohn catheter discontinued at 1200 due to pt request - stating I want this catheter out. Since d/c pt has been resting quietly in bed. Seizure pads in place. Bed alarm is on. Call light within reach. Dr. Arellano updated.
--- NOTE | 2018-07-21 16:39 | PC.NURSE ---
Addendum entered by Cici Leo R.N. 07/21/18 22:30: 2200 - After sleeping for nearly 2 hours, pt awake, calling out, help me, help me. Attempt to assist pt. Reoriented to place, situation and time of day. Pt denies need to void. Set up for sips of water. Pt motion significant to all extremities. Pt able to mostly control motion for short periods of time, but not able to sustain. Grabbing and shaking side rails. HR increased to 120's with activity. Increased agitation, declines further comfort measures. RX given to assist pt with anxiety/agitation. Addendum entered by Cici Leo R.N. 07/21/18 18:58: 1900 - Pt continues to call out needing to use the bathroom. Pt agreeable to attempt to be calm and follow directions. 2 person assist up to bsc, Pt able to void and have a BM. Able to follow directions and assist with care, however, as expected, gait is somewhat unsteady r/t continued motion. Error time on last entry, 1839 Addendum entered by Cici Leo R.N. 07/21/18 18:43: 1640 - Attempt to assist pt with bed garnett. Not able to void. Brief in place. Monitor. Addendum entered by Cici Leo R.N. 07/21/18 18:27: 1800 - Bed bath given. Pt agreeable to be washed up. Refused to have hair combed. Attempt at nail care. Pt restless and tearful throughout. Repeating I want to go home. Reinforced treatment plan. Continues to deny urge to void. Monitor. Original Note: 1630 -Pt awake and tearful. Able to ask for apple juice. Pt also states Where is Lee? Pt states He brought me in here. Unable to find contact information for Lee, Pt unable to recall contact phone number. Pt moaning, crying and restless, calling out for her mom. Difficult to console, rhythmic motion of extremities continues. Seizure pads in place. Bed alarm on.
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
[2018-07-21] MEDS: diazePAM 5 MG TABLET PO ×2 (17:27→22:26)
[2018-07-21] MEDS: ACETAMINOPHEN 325 MG TABLET 650 MG PO (22:26)
[2018-07-22] VITALS (7 sets, daily range): BP systolic 130–161; BP diastolic 64–102; PULSE 76–87; RESP 14–26; TEMP 36.4–36.9; O2SAT 95–98
[2018-07-22] MEDS: SODIUM CHLORIDE 0.9% 1,000 ML 125 ML IV (01:22)
--- NOTE | 2018-07-22 02:32 | PC.NURSE ---
NOC Shift: Pt quietly sleeping, wakes intermittently moaning, crying and minimally thrashing around. Responds to verbal communication, nods yes and no appropriately for needs. Falls back to sleep. VSS, SR on tele. IVF's continue. Seizure precautions, fall precautions still enforced.
--- NOTE | 2018-07-22 11:00 | PM.PN.1 ---
Subjective Date Patient Seen: 07/22/18 Interval history: The patient is a 52-year-old female who presented yesterday with altered mental status, tardive dyskinesia felt to be secondary to polysubstance overdose. Overnight the patient has had significant improvement. She has had less jerking. Less erratic behavior. She is tearful this morning. She is able to drink liquids but is not eating. She was able to get up and go to the restroom. She complained of abdominal pain but has had no nausea or vomiting. Exam Vital Signs (past 8 hours): - 07/22/18 03:55 07/22/18 07:41 07/22/18 08:08 Temperature 98.5 F 97.8 F Pulse Rate 76 81 Respiratory Rate 26 H 20 Blood Pressure 147/83 H 149/82 H Pulse Oximetry 95 98 98 Oxygen Delivery Method Room Air Oxygen Flow Rate 0 Narrative Exam Narrative: Discharge of old ill-appearing female Lungs: Clear to auscultation Cardiac exam: Regular rate rhythm normal S1-S2 Abdomen: Soft nontender nondistended Extremities: No edema Objective Labs Result Diagrams: 07/21/18 04:50 07/21/18 04:50 Assessment & Plan (1) Acute metabolic encephalopathy: Problem details: Acute metabolic encephalopathy, present on admission. Patient appears to be making some progress. She has received minimum Valium overnight. Current visit: Yes Status: Acute (2) Tardive dyskinesia: Problem details: Start of dyskinesia, toxic reaction to substances consumed. Improving, present on admission Current visit: Yes Status: Acute (3) Depression: Problem details: Depression, chronic will resume her usual home medication Current visit: Yes Status: Acute Quality VTE Deep Vein Thrombosis/Pulmonary Embolism Present on Admission: No
[2018-07-22] MEDS: DULOXETINE 30 MG CAPSULE 60 MG PO (12:16)
[2018-07-22] MEDS: QUETIAPINE 100 MG TABLET PO ×2 (12:17→22:50)
[2018-07-22] MEDS: GABAPENTIN 300 MG CAPSULE 900 MG PO ×2 (12:18→22:50)
[2018-07-22] MEDS: PANTOPRAZOLE 40 MG TABLET PO (12:20)
[2018-07-22] MEDS: ACETAMINOPHEN 325 MG TABLET 650 MG PO ×3 (18:06→23:53)
--- NOTE | 2018-07-22 23:06 | PC.NURSE ---
christina note pt has some rhythmic motions to upper body and arms. Pt able to feed self, take pills, hold glass without spilling. Boyfriend at bedside. Pt is calm, cooperative, able to converse.
[2018-07-23 03:00] VITALS: BP 153/80; PULSE 86; RESP 20; TEMP 36.7; O2SAT 96
[2018-07-23] MEDS: ACETAMINOPHEN 325 MG TABLET 650 MG PO ×2 (05:49→08:48)
[2018-07-23] MEDS: PANTOPRAZOLE 40 MG TABLET PO (05:50)
--- NOTE | 2018-07-23 08:34 | P.PN_ITS ---
Subjective Date Patient Seen: 07/23/18 Time Patient Seen: 10:13 Interval history: She is seen in her room today to follow up the chorea like movements and altered mental status. Earlier in this admission she had reportedly been able to suppress the movements but when I challenged her with that today she is unable to suppress the movements. Unlike classic Cascade's chorea, she is aware of the movements and they seem to bother her. I questioned her closely about any family history that might suggest Wilda's. She was unaware of how her father or what illnesses he might have had but it does not sound like there are any direct parent or grandparents known to have a movement disorder or known to have young before that could have onset. Also pointing against the Farrukh nolan's possibility is the fact that she was tried on phenothiazines early on and that did not seem to be effective. Neurology suggested a trial of Tetrabenazine but that is unavailable here and is challenging to obtain also as an outpatient. Exam Vital Signs (past 8 hours): - 07/23/18 03:00 Temperature 98.0 F Pulse Rate 86 Respiratory Rate 20 Blood Pressure 153/80 H Pulse Oximetry 96 Oxygen Delivery Method Room Air Oxygen Flow Rate 0 Narrative Exam Narrative: She is alert and oriented x3. She looks extremely disheveled with hair that has not been given much attention to and she appears quite u nhygienic. She is moving in a writhing motion of all extremities continuously and when I ask her to suppress that she seems unable to. Heart is regular rate and rhythm without murmur. Lungs are clear to auscultation bilaterally. Extremities have no ankle edema. 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 Unfortunately we are not able to obtain tetrabenazine which would be helpful at clarifying that condition. The working diagnosis continues to be a toxic reaction to substances consumed. Appreciate psychiatry rounding and their input. Anticipate disposition of discharge to home, at the trailer she [place] [address] tomorrow. Current visit: Yes Status: Acute (2) Depression: Problem details: Depression, chronic will resume her usual home medication duloxetine, Seroquel. Follow up with psych provider in [place] after discharge. Current visit: Yes Status: Acute (3) Acute metabolic encephalopathy: Problem details: Acute metabolic encephalopathy, present on admission. She seems to be doing much better. Current visit: Yes Status: Acute (4) Altered mental status, unspecified: Qualifiers: Altered mental status type: Coma depth: Coma timing: Current visit: Yes Status: Acute Quality VTE Deep Vein Thrombosis/Pulmonary Embolism Present on Admission: No
[2018-07-23 08:41] VITALS: BP 148/101; PULSE 98; RESP 15; TEMP 37.3; O2SAT 98
[2018-07-23] MEDS: DULOXETINE 30 MG CAPSULE 60 MG PO (08:48)
[2018-07-23] MEDS: GABAPENTIN 300 MG CAPSULE 900 MG PO ×3 (08:48→20:07)
[2018-07-23] MEDS: SODIUM CHLORIDE 0.9% FLUSH 10 ML IV ×2 (08:48→20:11)
[2018-07-23] MEDS: QUETIAPINE 100 MG TABLET PO ×2 (08:48→20:07)
[2018-07-23] MEDS: NICOTINE 21 MG PATCH TOP (09:45)
--- NOTE | 2018-07-23 10:50 | PC.NURSE ---
Addendum entered by Lola Montes De Oca R.N. 07/23/18 13:03: pt sleeps after meals; easily awakens. Original Note: pt teary eyed when couldn't remember cat's name. SO, Lee states Her thinking, memory isn't right. pt ambulated to bathroom using FWW and gait belt. pt somewhat steady on feet. voided dark straw color urine.
--- NOTE | 2018-07-23 11:13 | PM.PN.1 ---
Subjective Date Patient Seen: 07/23/18 Time Patient Seen: 10:30 Interval history: Psychiatry system sales consultant following up with patient. Patient is seen briefly this morning to follow up on ongoing consultation regarding her history of mental status changes, probable polysubstance overdose, and unusual choreoathetoid movements. Patient is seen sleeping in her bed. Her boyfriend, Lee, is present with her and was able to provide some collateral history. He notes that she did drink some wine on the night of her admission smoked some pot, and may have taken a number of her medications somewhat inappropriately. He states that she does not take them as directed but often mixes and matches and seems to, ?know how to get the right level.? In discussing the history with him, he concurs with the theory that she may have taken her meds inappropriately causing the symptoms that she presented with. The patient was quite sleepy but arousable, able to her eyes, briefly answer questions, but then went back to sleep. Exam Vital Signs (past 8 hours): - 07/23/18 08:41 Temperature 99.1 F Pulse Rate 98 H Respiratory Rate 15 Blood Pressure 148/101 H Pulse Oximetry 98 Oxygen Delivery Method Room Air Oxygen Flow Rate 0 Psych Appearance: disheveled Speech and Movement: speech clear and other (Movement much more normal, no choreiform or athetoid movements noted) Mood: congruent mood Affect: dysphoric affect Attitude: other (Minimally cooperative, sleepy) Thought Process: normal Thought Content: normal Judgment: poor Objective Labs Result Diagrams: 07/21/18 04:50 07/21/18 04:50 Assessment & Plan (1) Tardive dyskinesia: Problem details: Start of dyskinesia, toxic reaction to substances consumed. Improving, present on admission Current visit: Yes Status: Acute (2) Acute metabolic encephalopathy: Problem details: Acute metabolic encephalopathy, present on admission. Patient appears to be making some progress. She has received minimum Valium overnight. Current visit: Yes Status: Acute (3) Polypharmacy: Problem details: Superintendent Drilling regarding dangers of polypharmacy. Follow up with her PCP Current visit: No Status: Acute (4) Depression: Problem details: Depression, chronic will resume her usual home medication. Follow up with psych provider in [place] after discharge. Current visit: Yes Status: Acute Quality VTE Deep Vein Thrombosis/Pulmonary Embolism Present on Admission: No
[2018-07-23 12:00] VITALS: BP 111/63; PULSE 98; RESP 14; TEMP 36.3; O2SAT 98
--- NOTE | 2018-07-23 15:46 | PC.NURSE ---
christina note worklist entries charted on for 07/22/18 at 18:30 were done by this nurse, not Lola Montes De Oca.
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
--- NOTE | 2018-07-23 18:42 | PC.NURSE ---
Addendum entered by Sydnie Sanchez R.N. 07/23/18 21:47: Quietly resting in bed on left side. S.O. resting quietly on window cot in room. Original Note: Pt to room 208 from ICU awake and alert. S.O. accompanies patient. Pt demonstrates clear speech and appropriate mentation. Has continual movements of extremities. Bed alarm set as S.O. steps out. Now lying quietly in bed on left side without signs of distress or discomfort.
[2018-07-23 19:49] VITALS: BP 116/69; PULSE 99; RESP 21; TEMP 36.6; O2SAT 98
[2018-07-24] VITALS (10 sets, daily range): BP systolic 113–148; BP diastolic 55–92; PULSE 85–108; RESP 16–20; TEMP 36.5–36.9; O2SAT 95–99
--- NOTE | 2018-07-24 01:39 | PC.NURSE ---
Addendum entered and electronically signed by Dayo Fulton R.N. 07/24/18 05:44: 200mls of urine out and medium BM. Pt needs lots of cuing w/walker. Original Note: Pt alert and oriented, Lung sounds clear, VSS. Pt. denies pain and does not wish for any ordered Tylenol administration.
[2018-07-24] MEDS: PANTOPRAZOLE 40 MG TABLET PO (05:41)
[2018-07-24] MEDS: diazePAM 5 MG TABLET PO ×2 (08:39→19:59)
[2018-07-24] MEDS: DULOXETINE 30 MG CAPSULE 60 MG PO (08:39)
[2018-07-24] MEDS: SODIUM CHLORIDE 0.9% FLUSH 10 ML IV ×2 (08:39→20:52)
[2018-07-24] MEDS: QUETIAPINE 100 MG TABLET PO ×2 (08:39→20:52)
[2018-07-24] MEDS: GABAPENTIN 300 MG CAPSULE 900 MG PO ×3 (08:39→20:52)
[2018-07-24] MEDS: NICOTINE 21 MG PATCH TOP (08:39)
--- NOTE | 2018-07-24 14:20 | PT.IPTN ---
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 (07/20/18) Mental disorder, not otherwise specified (07/20/18) Drug induced subacute dyskinesia (07/20/18) Metabolic encephalopathy (07/20/18) Altered mental status, unspecified (07/20/18) Other superintendent container terminal (current) drug therapy (07/20/18) Physical Therapy Treatment Note M2 PT-IP Current Condition Start: 07/23/18 17:45 Freq: NEEDED Status: Active Protocol: Document 07/23/18 16:50 HH (Rec: 07/23/18 18:06 HH [id number]) Physical Therapy Current Condition Current Condition Evaluation Date 07/23/18 Treatment Diagnosis Toxic metabolic encephalopathy , dystonia and impaired gait, balance Onset Date 07/20/18 Weight Bearing Status Weight Bearing Status Weight Bear as Tolerated M3 PT-IP Subjective Start: 07/23/18 17:45 Freq: NEEDED Status: Active Protocol: Document 07/24/18 14:20 GGD (Rec: 07/24/18 15:29 GGD [id number]) Subjective Physical Therapy Visit Type Type Treatment Note Visit Start Time 13:50 Visit Stop Time 14:20 Total Visit Minutes 30 Number of SALON ASSISTANT Visits 1 Physical Therapy Visit Comments Patient Comments Pt willing to work with therapy. M4 PT-IP Mobility and Gait Start: 07/23/18 17:45 Freq: NEEDED Status: Active Protocol: Document 07/24/18 14:20 GGD (Rec: 07/24/18 15:29 GGD [id number]) PT-Bed Mobility Assessment Supine to Sit Supine to Sit Standby Assistance Scooting Scooting to Edge of Bed Standby Assistance Scooting Up and Down in Bed Standby Assistance PT-Transfer Assessment Sit to and From Stand Sit to and from Stand Contact Guard Assistance Use of Upper Extremities Equipment Transfer Assistive Device Gait Belt Front Wheeled Walker Orthotic/Prosthetic Devices or Brace: No Transfers Transfer Destination Bedside Commode Transfer Technique Stand Step Pivot Transfer Ability Level of Assist Contact Guard Assistance Use of Upper Extremities Gait Assessment Gait Gait Assistance Required: Contact Guard Assist Distance (Feet) 180 Able to Maintain Weight Bearing Status Yes During Gait Assistive Devices Assistive Device Gait Belt Front Wheeled Walker Orthotic/Prosthetic Devices or Brace: No Gait Deviations General Gait Pattern Ataxic Decreased Stride Length Decreased Feet Clearance Wide Based Gait Factors Limiting Gait Function Factors Limiting Gait Function Decreased Activity Tolerance Decreased Strength Difficulty Following Directions Incoordination Limited Range of Motion Poor Balance Poor Safety Awareness Comments Gait Comments Pt unsteady with standing balance and turns. She was able to self correct balance. M5 PT-IP Objective Assessments Start: 07/23/18 17:45 Freq: NEEDED Status: Active Protocol: Document 07/23/18 16:50 (Rec: 07/23/18 18:06 [id number]) Orientation Orientation/Cognition Level of Alertness Alert Orientation Name Age Birthday Month Year Day of Week Language Function Ability No Deficits Noted Safety Awareness Decreased Safety Awareness Memory Description Short Term Impaired Gross Range of Motion Upper Extremity ROM Assessment Within Functional Limits Lower Extremity ROM Assessment Within Functional Limits Strength Upper Extremity Strength Assessment Bilaterally Impaired Lower Extremity Strength Assessment Bilaterally Impaired Comments Strength Comments B UEs LEs strength 3+/5 Coordination Assessment Gross Coordination Gross Coordination Impaired Assessment Finger to Nose Test Moderate Impairment Pronation/Supination Test Moderate Impairment Foot Tapping Test Moderate Impairment Sensation Assessment Sensation Gross Sensation WNL Muscle Tone Muscle Tone WNL No Muscle Tone Location Lower Extremity Severity of Tone Moderate Manifistation of Tone Fluctuation Upper Extremity Severity of Tone Moderate Manifistation of Tone Fluctuation M6 PT-IP Treatment Start: 07/23/18 17:45 Freq: NEEDED Status: Active Protocol: Document 07/23/18 16:50 (Rec: 07/23/18 18:06 [id number]) Physical Therapy Treatment Education Education Provided Safety M7 PT-IP Assessment and Plan Start: 07/23/18 17:45 Freq: NEEDED Status: Active Protocol: Document 07/24/18 14:20 GGD (Rec: 07/24/18 15:29 GGD [id number]) PT Summary Assessment and Plan Summary Assessment Summary Pt improving with mobility. She had mild unsteadiness with gait. She was safe with the use of FWW. Pt need cues for safe turn and keep FWW when transferring [place] [facility] Pt will need a walker at D/C. Frequency of Treatment Frequency Of Treatment Once a Day Treatment Plan Physical Therapy Treatment Plan Bed Mobility Training Transfer Training Gait Training Therapeutic Exercise Balance Retraining Discharge Planning Hot or Cold Pack Neuromuscular Re-ed Coordination Retraining Other Recommendations and Next Treatment FWW vs 4WW with gait. Focus Recommendations To Nursing Amount of Assist Needed 1 Person Assist Discharge Recommendations PT Discharge Recommendations Home with Assistance
--- NOTE | 2018-07-24 14:26 | P.PN_ITS ---
Subjective Date Patient Seen: 07/24/18 Interval history: She is seen in her room here today to follow-up the movement disorder and related problems including depression and mental status changes. She still looks quite disheveled, her hair is badly matted and she seems not to be self-conscious about it. She says she does not want a haircut, she wants to comb out the matts instead. The blood pressure is 148/72 and heart rate is 99. Exam Vital Signs (past 8 hours): - 07/24/18 07:25 07/24/18 08:10 07/24/18 11:48 Temperature 97.7 F 98.4 F Pulse Rate 101 H 108 H Respiratory Rate 18 20 Blood Pressure 135/92 H 113/55 L Pulse Oximetry 98 98 96 Oxygen Delivery Method Room Air Oxygen Flow Rate 0 Narrative Exam Narrative: Alert and oriented x3. No apparent distress. Consistent, repetitive whole body chorea with matted, disheveled hair. Heart is regular rate and rhythm with frequent early beats and no murmur. 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 Unfortunately we are not able to obtain tetrabenazine which would be helpful at clarifying that condition. The working diagnosis continues to be a toxic reaction to substances consumed. Appreciate psychiatry rounding and their input. Anticipate disposition of discharge to home, at the tent/truck she lives in at [address] tomorrow or to long-term facility. Current visit: Yes Status: Acute (2) Depression: Problem details: Depression, chronic will continue her usual home medication duloxetine, Seroquel. Follow up with psych provider in [place] after discharge. Current visit: Yes Status: Acute (3) Acute metabolic encephalopathy: Problem details: Acute metabolic encephalopathy, present on admission. She seems to be doing much better. Current visit: Yes Status: Acute (4) Altered mental status, unspecified: Qualifiers: Altered mental status type: Coma depth: Coma timing: Current visit: Yes Status: Acute Quality VTE Deep Vein Thrombosis/Pulmonary Embolism Present on Admission: No
--- NOTE | 2018-07-24 15:16 | CM.DPC ---
DCP/continued: Reviewed chart. Received notification from therapy that they feel that patient is back to her physical baseline. They are recommending either a FWW or 4WW. TELEVISION REPAIRER met with patient and SO/Lee at bedside. Patient and SO/Lee aware that discharge will most likely occur tomorrow 07-25-18. Patient and Lee have truck with tent in [employer] parking lot. They also have a cat that Lee reports comes and goes from the truck. Patient aware of the possibility of SNF if insurance covered? Patient declines because SO/Lee cannot stay with her. Both patient and Lee decline community resources. Patient reports that her PCP is Dr. Nova in [place] and she see neurologist in [place]. Patient uses [facility] in [place] or whichever [facility] closest. P: Anticipate d/c to truck/tent when medically stable. Patient does report that she would like some clothes if possible. Will request TELEVISION REPAIRER check prior to d/c. CARLEY Solorzano
--- NOTE | 2018-07-24 15:44 | OT.IP.TRT ---
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 (07/20/18) Mental disorder, not otherwise specified (07/20/18) Drug induced subacute dyskinesia (07/20/18) Metabolic encephalopathy (07/20/18) Altered mental status, unspecified (07/20/18) Other meterman (current) drug therapy (07/20/18) Occupational Therapy Treatment Note M2 OT-IP Current Condition Start: 07/23/18 15:04 Freq: Status: Active Protocol: Document 07/23/18 15:05 CCC (Rec: 07/23/18 15:45 CCC [email or web address]) Occupational Therapy Current Condition Current Condition Evaluation Date 07/23/18 Treatment Diagnosis Toxic metabolic encephalopathy Diagnosis Onset Date 07/20/18 Weight Bearing Status Weight Bearing Status Weight Bear as Tolerated M3 OT- IP Subjective and Pain Start: 07/23/18 15:04 Freq: Status: Active Protocol: Document 07/24/18 15:31 CGR (Rec: 07/24/18 15:44 CGR [email or web address]) OT- Subjective Occupational Therapy Visit Type Type Progress Note Visit Start Time 14:08 Visit Stop Time 15:01 Total Visit Minutes 53 Occupational Therapy Visit Comments Patient Comments Pt agreeable to getting into the shower to work on brushing out her hair. OT Pain Assessment Pain When Pain Assessed At Rest Pain Present Pain Present Denied Pain M4 OT- IP ADL's Start: 07/23/18 15:04 Freq: Status: Active Protocol: Document 07/24/18 15:31 CGR (Rec: 07/24/18 15:44 CGR [email or web address]) OT [id number] General Evaluation Self-Feeding Ability Independent OT ADL-Grooming General Evaluation Grooming Ability Standby Assistance Areas Needing Assistance Retrieving/Set-up of Grooming Items OT ADL-Dressing General Eval Lower Body Dressing Ability Contact Guard Assistance Comments OT Dressing Comments Pt donned socks seated on shower chair with extra time OT ADL-Bathing General Evaluation Bathing Ability Minimal Assistance Areas Needing Assistance Retrieving/Setting Up Items Comments OT Bathing Comments Assist with hair. M6 OT- IP Functional Cognition Start: 07/23/18 15:04 Freq: Status: Active Protocol: Document 07/24/18 15:31 CGR (Rec: 07/24/18 15:44 CGR [email or web address]) Cognitive Factors Limiting Selfcare Function Cognitive Ability Level of Alertness Alert Patient Orientation Name Age Birthday Month Date Year Day of Week Place Situation Attention Span Ability Capable of Focused Attention Ability to Follow Commands Able to Follow One Step Commands Memory Description No Deficits Noted Safety Awareness Underestimates Need for Assistance M7 OT- IP Mobility and Balance Start: 07/23/18 15:04 Freq: Status: Active Protocol: Document 07/24/18 15:31 CGR (Rec: 07/24/18 15:44 CGR [email or web address]) OT- Bed Mobility Assessment Rolling Level of Assistance Contact Guard Assistance Supine to Sit Supine to Sit Assist Contact Guard Assistance Scooting Scooting to Edge of Bed Contact Guard Assistance OT-Transfer Assessment Sit to and From Stand Sit to and from Stand Contact Guard Assistance Transfers Transfer Ability Contact Guard Assistance Devices Transfer Assistive Devices Gait Belt Front Wheeled Walker OT- Balance Assessment Sitting Balance and Reactions Static Sitting Balance Ability Fair Dynamic Sitting Balance Ability Fair M8 OT- IP Objective Assessments Start: 07/23/18 15:04 Freq: Status: Active Protocol: Document 07/23/18 15:05 [facility] (Rec: 07/23/18 15:45 CCC [email or web address]) OT Gross Range of Motion Upper Extremity Range of Motion Assessment Bilaterally Impaired ROM Impairments 0-90 for AROM shoulderflexion, WFL from elbow to distal. OT Strength Comments Strength Comments 4-/5 to 3+/5 for BUE proximal to distal. OT- Coordination Assessment Upper Extremity Finger to Nose Test Within Functional Limits OT-Muscle Tone Assessment Comments Muscle Tone Comments Tardive dyskinesia on her arms . M9 OT- IP Assessment and Plan Start: 07/23/18 15:04 Freq: Status: Active Protocol: Document 07/24/18 15:31 CGR (Rec: 07/24/18 15:44 CGR [email or web address]) OT Summary Assessment and Plan Potential Rehabilitation Potential Good Summary OT Impairments Balance Coordination Functional Cognition Functional Mobility Dressing Toileting Bathing Toilet Transfers Shower Transfers Progress Towards Goals Slow Progress due to Medical Issues Assessment Summary Pt low complexity and main barrier is place to stay as pt is homeless, pt has decreased balance, functional cognition , decreased activity tolerance and strength and at this time needing assist for ADl's and functional mobility needs. Pending medical recovery pt may need more rehab, skilled rehab however pending disposition. Goals Grooming Goal Independent Dressing Goal Independent Toileting Goal Independent Bathing Goal Standby Assistance Toilet Transfer Goal Independent Shower Transfer Goal Standby Assistance Patient/Caregiver Education Goal Caregiver Independent Assisting Patient Days to Meet Goals 4 Frequency of Treatment Frequency Of Treatment Once a Day Treatment Plan OT Treatment Plan ADL Training Functional Cognition Training Functional Mobility Patient/Family Education Discharge Planning Discharge Recommendations OT Discharge Recommendations Home with Assistance SNF Rehab Home Equipment Needs To be determined and pending disposition.
--- NOTE | 2018-07-24 22:52 | PC.NURSE ---
SHIFT 3p-11p Report received, care assumed. VSS. Pt. A&Ox3, denies pain. Exhibits abnormal gross and fine motor movements (see progress note regarding potential diagnoses), but appears to be consistent with baseline. Pt. was generally calm. However, at one point she did become tearful and upset She is very anxious about potential discharge tomorrow, feeling she does not have a good understanding of her medications or diagnoses, nor does she have a place to stay, financial resources, or even clothes upon discharge. Although I am aware that the patient has already been seen by a CENTRIFUGAL SCREEN TENDER and may have declined some services, I will again place communication with social work department.
--- NOTE | 2018-07-25 01:51 | PC.NURSE ---
Pt has less jerky dyskentic movements on this shift. Pt VSS, and sleeping soundly. Pt is concerned about discharge and having clothing, and some gas money. Will pass on to day shift to have social work job titles help out with this. Also will pass on to day shift that Hospitalist needs to give education about potential diagnosis of Bland's Disease to patient to alleviate anxiety.
[2018-07-25] MEDS: PANTOPRAZOLE 40 MG TABLET PO (05:33)
[2018-07-25 06:00] VITALS: BP 136/95; PULSE 105; RESP 16; TEMP 36.6; O2SAT 97
[2018-07-25] MEDS: QUETIAPINE 100 MG TABLET PO (08:16)
[2018-07-25] MEDS: GABAPENTIN 300 MG CAPSULE 900 MG PO (08:16)
[2018-07-25] MEDS: DULOXETINE 30 MG CAPSULE 60 MG PO (08:16)
[2018-07-25] MEDS: NICOTINE 21 MG PATCH TOP (08:16)
[2018-07-25] MEDS: SODIUM CHLORIDE 0.9% FLUSH 10 ML IV (08:17)
[2018-07-25 08:30] VITALS: BP 140/108; PULSE 105; RESP 20; TEMP 36.6; O2SAT 98
[2018-07-25 09:10] VITALS: O2SAT 98
--- NOTE | 2018-07-25 09:45 | PT.IPTN ---
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 (07/20/18) Mental disorder, not otherwise specified (07/20/18) Drug induced subacute dyskinesia (07/20/18) Metabolic encephalopathy (07/20/18) Altered mental status, unspecified (07/20/18) Other terminal operator (current) drug therapy (07/20/18) Physical Therapy Treatment Note M2 PT-IP Current Condition Start: 07/23/18 17:45 Freq: NEEDED Status: Active Protocol: Document 07/23/18 16:50 HH (Rec: 07/23/18 18:06 HH [id number]) Physical Therapy Current Condition Current Condition Evaluation Date 07/23/18 Treatment Diagnosis Toxic metabolic encephalopathy , dystonia and impaired gait, balance Onset Date 07/20/18 Weight Bearing Status Weight Bearing Status Weight Bear as Tolerated M3 PT-IP Subjective Start: 07/23/18 17:45 Freq: NEEDED Status: Active Protocol: Document 07/25/18 09:30 CLB (Rec: 07/25/18 11:50 CLB [id number]) Subjective Physical Therapy Visit Type Type Treatment Note Visit Start Time 09:30 Visit Stop Time 09:45 Total Visit Minutes 15 Number of PRINCIPLE INDUSTRIAL HYGIENIST Visits 2 Physical Therapy Visit Comments Patient Comments Pt willing to work with therapy. Therapy Pain Assessment Pain Present Pain Present Denied Pain M4 PT-IP Mobility and Gait Start: 07/23/18 17:45 Freq: NEEDED Status: Active Protocol: Document 07/25/18 09:30 CLB (Rec: 07/25/18 11:50 CLB [id number]) PT-Bed Mobility Assessment Supine to Sit Supine to Sit Standby Assistance Scooting Scooting to Edge of Bed Standby Assistance Scooting Up and Down in Bed Standby Assistance PT-Transfer Assessment Sit to and From Stand Sit to and from Stand Contact Guard Assistance Use of Upper Extremities Equipment Transfer Assistive Device Gait Belt Front Wheeled Walker Orthotic/Prosthetic Devices or Brace: No Transfers Transfer Destination Chair Transfer Technique Stand Step Pivot Transfer Ability Level of Assist Contact Guard Assistance Use of Upper Extremities Comments Mobility Comments Pt able to simeon socks. Instructed pt on how to lock brakes before standing and sitting. Gait Assessment Gait Gait Assistance Required: Standby Assistance Contact Guard Assist Distance (Feet) 210 Able to Maintain Weight Bearing Status Yes During Gait Assistive Devices Assistive Device Gait Belt 4 Wheeled Walker Gait Deviations General Gait Pattern Ataxic Decreased Stride Length Decreased Feet Clearance Wide Based Gait Factors Limiting Gait Function Factors Limiting Gait Function Decreased Activity Tolerance Decreased Strength Difficulty Following Directions Incoordination Limited Range of Motion Poor Balance Poor Safety Awareness Comments Gait Comments Pt with left lean with gait that pt was able to recognize and correct. Pt able to properly use 4WW with cues to lock brakes before turning and sitting on seat. Stair Climbing Assessment Comments Stair Climbing Comments did not attempt M5 PT-IP Objective Assessments Start: 07/23/18 17:45 Freq: NEEDED Status: Active Protocol: Document 07/23/18 16:50 (Rec: 07/23/18 18:06 [id number]) Orientation Orientation/Cognition Level of Alertness Alert Orientation Name Age Birthday Month Year Day of Week Language Function Ability No Deficits Noted Safety Awareness Decreased Safety Awareness Memory Description Short Term Impaired Gross Range of Motion Upper Extremity ROM Assessment Within Functional Limits Lower Extremity ROM Assessment Within Functional Limits Strength Upper Extremity Strength Assessment Bilaterally Impaired Lower Extremity Strength Assessment Bilaterally Impaired Comments Strength Comments B UEs LEs strength 3+/5 Coordination Assessment Gross Coordination Gross Coordination Impaired Assessment Finger to Nose Test Moderate Impairment Pronation/Supination Test Moderate Impairment Foot Tapping Test Moderate Impairment Sensation Assessment Sensation Gross Sensation WNL Muscle Tone Muscle Tone WNL No Muscle Tone Location Lower Extremity Severity of Tone Moderate Manifistation of Tone Fluctuation Upper Extremity Severity of Tone Moderate Manifistation of Tone Fluctuation M6 PT-IP Treatment Start: 07/23/18 17:45 Freq: NEEDED Status: Active Protocol: Document 07/23/18 16:50 HH (Rec: 07/23/18 18:06 [id number]) Physical Therapy Treatment Education Education Provided Safety M7 PT-IP Assessment and Plan Start: 07/23/18 17:45 Freq: NEEDED Status: Active Protocol: Document 07/25/18 09:30 CLB (Rec: 07/25/18 11:50 CLB [id number]) PT Summary Assessment and Plan Summary Assessment Summary Pt did well with 4WW but insurance unable to cover so FWW issued to pt. Pt is SBA for all bed mobility. Pt continues to have mild unsteadiness with beginning of gait that she was able to correct. Pt requires cues for chair approach. Goals Bed Mobility Goal Independent Transfer Goal Independent Gait Goal Independent Gait Distance 200 Days to Meet Goals 5 Frequency of Treatment Frequency Of Treatment Once a Day Treatment Plan Physical Therapy Treatment Plan Bed Mobility Training Transfer Training Gait Training Therapeutic Exercise Balance Retraining Discharge Planning Hot or Cold Pack Neuromuscular Re-ed Coordination Retraining Recommendations To Nursing Amount of Assist Needed 1 Person Assist Discharge Recommendations PT Discharge Recommendations Home with Assistance Equipment Needed for Home Before FWW issued at d/c Discharge
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
--- NOTE | 2018-07-25 11:11 | CM.DPNOTE ---
Reviewed chart. Pt discussed in multidisciplinary rounds this morning. Pt is medically stable to DC back to truck today, pt agreeable. Met w/pt and her SO Lee; pt looking a lot more alert and clear than Thursday when this YOUTH MINISTRY DIRECTOR met her. Lee agrees pt doing a lot better. Had lengthy conversation about steps pt/SO will take moving forward to keep pt as safe and healthy as possible. Pt/SO take care of each other, encouraged better medication management and pt agrees. Both pt/SO continue to deny drug use other than alcohol and marijuana. This YOUTH MINISTRY DIRECTOR strongly encouraged compliance w/outpt. appt.s to include PCP, Psychiatrist and Neurologist. Pt agrees. Pt/SO will get up to [place] as soon as they can and contact [facility] re: housing efforts. Pt/SO will be in their truck upon DC and will plan to seek gas vouchers through [facility]'s [employer] and/or [employer]. No additional SW needs identified by either this YOUTH MINISTRY DIRECTOR or pt/SO Lee, both appreciative of the visit. Updated OLIVE Barlow. CARLEY Jennings
--- NOTE | 2018-07-25 11:13 | PC.NURSE ---
Pt is ready for discharge from hospital with S.O. - plans to eat lunch and then depart. Obtained a clothing pack for Pt. Discussed d/c meds, time of last dose, reviewed Pt med list and reminded Pt not to resume discontinued meds (disposed of current discontinued meds as agreed to by Pt), not to consume alcohol or ANY illicit drugs. Reviewed stroke education. Pt to follow up with her PCP next week and to follow up as scheduled with her neurologist. Pt denies further questions and is ready to be taken out via w/c when she and S.O. have completed lunch.
== END 2018-07-25 12:52 | disposition home or self-care (01) | DRG 917 ==
LOC: ED 09:49 → AC 15:57 → ICU 16:40 → AC 07-22 16:31 → ICU 07-22 16:31 → AC 07-23 17:18
PROVIDERS: Family Medicine; Nurse Practitioner Family; Admitting Provider Internal Medicine; Emergency Provider Emergency Medicine; Family Provider Family Medicine; PCP Family Medicine; Visit Provider Internal Medicine
DX: T43.621A Poisoning by amphetamines, accidental (unintentional), initial encounter (principal); G92 Toxic encephalopathy; R40.2122 Coma scale, eyes open, to pain, at arrival to emergency department; T40.7X1A Poisoning by cannabis (derivatives), accidental (unintentional), initial encounter; T43.011A Poisoning by tricyclic antidepressants, accidental (unintentional), initial encounter; G24.01 Drug induced subacute dyskinesia; R40.2332 Coma scale, best motor response, abnormal flexion, at arrival to emergency department; R40.2242 Coma scale, best verbal response, confused conversation, at arrival to emergency department; G89.29 Other chronic pain; M54.5 Low back pain; F32.9 Major depressive disorder, single episode, unspecified
CPT/HCPCS: 36415; 51701; 70450; 80053; 80305; 80329; 81001; 82550; 82553; 83605; 84145; 84439; 84443; 84484; 85025; 87040; 87797; 96361; 96374; 96375; 96376; 97116; 97162; 97165; 97530; 97535; 99285; 99291; 99292; G0480; J0515; J1630; J2060; J2930